=== PATIENT | male | born 1975 | race Caucasian/White ===

== ENCOUNTER 2017-12-05 11:20 | Observation (INO) | payer SELFPAY ==
[2017-12-05 12:05] LABS: #Eosinphils 0.1 thou/uL (0.0-0.7); #Lymphocytes 2.4 thou/uL (1.20-3.40); #Monocytes 0.8 thou/uL (0.11-0.59); #Neutrophils 7.5 thou/uL (1.40-6.50); %Basophils 0.4 % (0.0-1.0); %Eosinophils 0.6 % (0.0-10.0); %Lymphocytes 21.8 % (21.0-51.0); %Monocytes 7.7 % (0.0-10.0); %Neutrophils 69.4 % (42.0-75.0); Hemoglobin 17.3 g/dL (14.0-18.0); Mean Corpuscular HGB CONC 34.1 g/dL (32.0-36.0); Mean Corpuscular Volume 90.7 fl (80.0-94.0); Mean Platelet Volume 6.6 fL (7.4-10.4); Platelet Count 356 thou/uL (130-400); White Blood Cell (WBC) Count 10.8 thou/uL (4.8-10.8)
[2017-12-05 12:12] LABS: Prothrombin Time 13.5 SEC (12.0-14.7)
[2017-12-05 12:30] LABS: Bilirubin Small (Negative); Blood, Urine Negative (Negative); Clarity CLEAR (Clear); Glucose, Urine (Dipstick) Negative (Negative); Leukocyte Negative (Negative); Nitrite Negative (Negative); Protein, Urine (Dipstick) 30 mg/dL (Neg-Trace); Specific Gravity, Urine 1.036 (1.002-1.036); Urobilinogen 0.2 mg/dL (0.2-1.0); pH, Urine 5.5 (5.0-9.0)
[2017-12-05 12:30] LABS: ALT (SGPT) 45 U/L (8-55); AST (SGOT) 26 U/L (5-34); Alkaline Phosphatase 74 U/L (40-150); Anion Gap 13 mmol/L (10-20); BUN (Urea Nitrogen) 10 mg/dL (8.9-20.6); Bilirubin, Total 0.3 mg/dL (0.2-1.2); CK (CPK) 67 U/L (30-200); Calc. Creatinine Clearance 0 mL/min (70-130); Calcium 9.8 mg/dL (7.8-10.44); Carbon Dioxide 27 mmol/L (22-29); Chloride 104 mmol/L (98-107); Estimated GFR-MDRD 79; Globulin 3.5 g/dL (2.4-3.5); Glucose 111 mg/dL (70-105); Potassium 3.8 mmol/L (3.5-5.1); Protein, Total 8.5 g/dL (6.0-8.3); Sodium 140 mmol/L (136-145)
[2017-12-05 12:36] LABS: Bacteria/HPF None Seen HPF (None Seen); RBC/HPF 0-3 HPF (0-3); Squamous Epithelial 0-3 HPF (0-3)
[2017-12-05 12:42] LABS: Pathc Cast-AUWi Flag 10.17 (0-2.49)
[2017-12-05 12:43] LABS: Hyaline Casts/LPF 4-6 HYALINE CAST LPF (0-3 Hyaline); Other Casts/LPF 0-3 COARSE GRAN LPF (0-3 Hyaline); Renal Epithelial 0-3 HPF (0-3); Transitional Epithelial 0-3 HPF (0-3)
--- NOTE | 2017-12-05 13:24 | RAD ---
3 VIEWS RIGHT FOOT: Date: 12/05/17 COMPARISON: None. HISTORY: Something bit fourth toe last night with right fourth toe pain. FINDINGS: Four views of the right foot show no evidence of acute fracture or dislocation. No radiopaque foreign body is seen. Mild distal soft tissue swelling is seen. IMPRESSION: No evidence of acute osseous abnormality. POS: [facility]
[2017-12-05] MEDS ORDERED: Morphine 4 MG/ML VIAL ONE (13:49)
[2017-12-05] MEDS ORDERED: Promethazine HCl 25 MG/ML VIAL ONE (13:50)
[2017-12-05] MEDS ORDERED: diphenhydrAMINE 50 MG/ML VIAL ONE (13:50)
[2017-12-05] MEDS ORDERED: Famotidine 20 MG TAB ONE (13:50)
[2017-12-05] MEDS ORDERED: methylPREDNISolone Sod Succ/PF 125 MG/2 ML VIAL ONE (13:50)
[2017-12-05] MEDS ORDERED: Water For Inject, Bacteriostat 30 ML ONE (13:51)
--- NOTE | 2017-12-05 13:57 | PDOC.FPRHP ---
- History of Present Illness Chief Complaint: Bite History of Present Illness: 42 yo male presents for evaluation of a bite from last night. Last night around 2200 was walking around his yard in the dark last night with flip flops on and got bit by something. He thought that it was a snake, a wasp, or a spider. He initially had pain and it has progressively gotten more swollen. He states the stinging pain has been present since the event occurred. He states that he feels his lower leg and foot feel hypersensitive to touch. He has multiple other fire ant bites present on his lower extremities that are not bothering him. He has had some associated nausea, but no vomiting, diarrhea, fevers or chills. Patient states that he has no other bothersome lesions on his body. Patient otherwise states "he is in pretty good shape for 42." No other complaints today. ED Course: Diphenhydramine Famotidine Methylprednisolone Phenergan Morphine - Allergies/Adverse Reactions Allergies Allergy/AdvReac Type Severity Reaction Status Date / Time No Known Drug Allergies Allergy Verified 12/05/17 14:29 - History PMHx: Untreated Bipolar disorder PSHx: None FHx: None Social: Patient denies alcohol, drug, or tobacco use. - Review of Systems General: denies: fever/chills, weight/appetite/sleep changes Eyes: denies: eye pain ENT: denies: nasal congestion, rhinorrhea Respiratory: denies: cough, congestion Cardiovascular: reports: edema. denies: chest pain, palpitation Gastrointestinal: reports: nausea. denies: vomiting, diarrhea, constipation, abdominal pain Genitourinary: denies: incontinence, dysuria Skin: reports: lesions, itching. denies: rashes, jaundice Musculoskeletal: reports: pain (Right foot/lower leg), tenderness, swelling Neurological: denies: numbness, syncope, seizure Psychological: denies: anxiety, depression - Vital signs BP: 152/93 HR: 80 RR: 18 Tmax: 98.2 Pox: 98% on RmAir Wt: 104 kg - Physical Exam Constitutional: NAD, awake, alert and oriented HEENT: normocephalic and atraumatic, PERRLA, grossly normal vision, grossly normal hearing, normal nasal mucosa, good dention Neck: supple, trachea midline Chest: no-tender to palpation Heart: RRR, normal S1/S2, no murmurs/rubs/gallops, other (Edema present pen[facility]ent[facility] up tibia in front. Edema over entire foot with multiple suspected insect bites) Lungs: CTAB, no respiratory distress, no wheezing Abdomen: soft, non-tender, bowel sounds present, no masses/distention Musculoskeletal: normal structure, normal tone, ROM grossly normal -Musculoskeletal: Active and passive flexion do not elicit pain. No paresthesias. Warmth and edema to RLE midway up tibia. Neurological: no focal deficit, CN II-XII intact, normal sensation Skin: no rash/lesions, good turgor, capillary refill <2 seconds Heme/Lymphatic: no unusual bruising or bleeding Psychiatric: normal mood and affect, good judgment and insight, intact recent and remote memory FMR H&P: Results - Labs Result Diagrams: 12/05/17 11:50 12/05/17 11:50 Lab results: WBC 10.8 thou/uL (4.8-10.8) 12/05/17 11:50 Hgb 17.3 g/dL (14.0-18.0) 12/05/17 11:50 Hct 50.8 % (42.0-52.0) 12/05/17 11:50 MCV 90.7 fl (80.0-94.0) 12/05/17 11:50 Plt Count 356 thou/uL (130-400) 12/05/17 11:50 Neutrophils % 69.4 % (42.0-75.0) 12/05/17 11:50 Sodium 140 mmol/L (136-145) 12/05/17 11:50 Potassium 3.8 mmol/L (3.5-5.1) 12/05/17 11:50 Chloride 104 mmol/L (98-107) 12/05/17 11:50 Carbon Dioxide 27 mmol/L (22-29) 12/05/17 11:50 BUN 10 mg/dL (8.9-20.6) 12/05/17 11:50 Creatinine 1.02 mg/dL (0.6-1.3) 12/05/17 11:50 Glucose 111 mg/dL (70-105) H 12/05/17 11:50 Calcium 9.8 mg/dL (7.8-10.44) 12/05/17 11:50 Total Bilirubin 0.3 mg/dL (0.2-1.2) 12/05/17 11:50 AST 26 U/L (5-34) 12/05/17 11:50 ALT 45 U/L (8-55) 12/05/17 11:50 Alkaline Phosphatase 74 U/L (40-150) 12/05/17 11:50 Creatine Kinase 67 U/L (30-200) 12/05/17 11:50 Serum Total Protein 8.5 g/dL (6.0-8.3) H 12/05/17 11:50 Albumin 5.0 g/dL (3.5-5.0) 12/05/17 11:50 Urine Ketones Negative mg/dL (Negative) 12/05/17 12:14 Urine Blood Negative (Negative) 12/05/17 12:14 Urine Nitrite Negative (Negative) 12/05/17 12:14 Ur Leukocyte Esterase Negative (Negative) 12/05/17 12:14 Urine RBC 0-3 HPF (0-3) 12/05/17 12:14 Urine WBC 4-6 HPF (0-3) H 12/05/17 12:14 Ur Squamous Epith Cells 0-3 HPF (0-3) 12/05/17 12:14 Urine Bacteria None Seen HPF (None Seen) 12/05/17 12:14 - EKG Interpretation EK lead EKG shows normal sinus rhythm, Rate (beats per minute): 91, Interpretation: normal EKG. - Radiology Interpretation Other Status: report reviewed by me (Foot xray: No acute osseus abnormality) FMR H&P: A/P - Problem List (1) Insect bite Current Visit: Yes Status: Acute Code(s): W57.XXXA - BIT/STUNG BY NONVENOM INSECT & OTH NONVENOM ARTHROPODS, INIT (2) Elevated BP without diagnosis of hypertension Current Visit: Yes Status: Acute Code(s): R03.0 - ELEVATED BLOOD-PRESSURE READING, W/O DIAGNOSIS OF HTN - Plan 1. Insect bite - Will get doppler US to find pedal pulses - Will monitor for signs/symptoms of infection or worsening condition - Benadryl, Toradol, Pepcid, IVF - Medical Observation admission 2. Elevated BP - Will monitor vital signs - Likely secondary to pain - Will consider antihypertensive treatment as needed. CODE STATUS: FULL CODE Disposition: Stable, Will admit to Observation. FMR H&P: Upper Level - Pertinent history 42 yo M with no significant PMH presents with right lower leg swelling and pain since being bit by something outdoors last night while walking in flip flops. States he does not know what bit him, but that it stings now. Tried some tylenol at home with minimal relief. No fevers, chills, muscle aches or cramps, bleeding, headaches, dizziness. Pain mostly localized to dorsum of foot. - Pertinent findings PE: T: 98.1 P: 91 BP: 145/73 RR: 20 98% on RA Gen: [place] overweight male in NAD HEENT: PERRL, EOMI, MMM, no lymphadenopathy or thyromegaly CV: RRR no murmurs, distal pulses intact Pulm: CTAB, no wheezes or rhonchi Abd: soft, NT/ND, BS present, no masses or distention Ext: no cyanosis or edema MSK: unilateral RLE swelling, worst on dorsum of foot, no erythema, some pain with ROM, mild pallor noted, normal sensation; mild calf tenderness Neuro: CN 2-12 intact, normal sensation Psych: A&O x3, appropriate in conversation - Plan Date/Time: 12/05/17 1356 42 yo M here with leg swelling. 1) Suspected bug bite: Will observe on medical. Check doppler US to rule out DVT due to calf tenderness. Normal labs currently, but will repeat coags, CMP in AM. Low level of concern for cellulitis vs nec fasciitis at this time. Afebrile, no erythema, no pain out of proportion on exam. 2) elevated BP: Continue to monitor overnight. May have undiagnosed HTN. I, [Hemant Pederson], have evaluated this patient and agree with findings/plan as outlined by engineer intern resident. Pertinent changes/additions are listed here. Attending Addendum - Attending Addendum Date/Time: 12/05/17 [id number] I personally evaluated the patient and discussed the management with Dr. Pederson and team. I agree with and repeated the History, Examination, Assessment and Plan documented above with any addition or exceptions noted below. Very painful RLE. No fevers, chills, numbness, or tingling. No erythema or ecchymoses. Edema to mid calf. Soft compartments. Mild warmth. CR <3 s. SILT. Will admit and monitor, provide pain control, rule out DVT. CK normal. C/f large local reaction of some sort. Low suspicion for ischemia, compartment syndrome, or necrotizing fasciitis. Will check on him q2h.
[2017-12-05] MEDS ORDERED: diphenhydrAMINE 25 MG CAP PO PRN (14:24)
[2017-12-05] MEDS ORDERED: Ondansetron ODT 4 MG TAB PO PRN ×2 (15:07→15:12)
[2017-12-05] MEDS ORDERED: Ondansetron HCl/PF 4 MG/2 ML Vial IVP PRN (15:07)
[2017-12-05] MEDS ORDERED: Acetaminophen 325 MG TAB PO PRN ×2 (15:08→15:12)
[2017-12-05] MEDS ORDERED: HYDROcodone/Acetaminophen 5/325 mg Tablet PO PRN ×2 (15:08)
[2017-12-05] MEDS ORDERED: Bisacodyl 5 MG TAB PO PRN (15:12)
[2017-12-05 15:36] VITALS: BMI 31.1
--- NOTE | 2017-12-05 15:58 | ULT ---
VENOUS DOPPLER ULTRASOUND OF THE RIGHT LOWER EXTREMITY: 12/05/17 HISTORY: Right lower leg pain and edema. TECHNIQUE: Butcher scale, color flow and spectral doppler imaging of the deep venous system of the right lower extr emity was performed. FINDINGS: There is good flow, compression and augmentation noted in the right common femoral, femoral, deep fem oral, popliteal, posterior tibial and greater saphenous veins. IMPRESSION: No evidence of DVT in the right lower extremity. POS: [facility]
[2017-12-05] MEDS: Ketorolac Tromethamine 10 MG TAB PO SCH ×2 (16:24→20:58)
[2017-12-05] MEDS: Lactated Ringer's 1,000 ML IV SCH ×2 (16:25→23:55)
[2017-12-05] MEDS: Famotidine 20 MG TAB PO SCH (20:58)
[2017-12-06] MEDS: Ketorolac Tromethamine 10 MG TAB PO SCH ×3 (01:03→08:48)
--- NOTE | 2017-12-06 06:37 | PDOC.FM ---
- Subjective Subjective: Patient doing well this AM. No significant overnight events. He states his LE pain has improved and he feels much better than he did yesterday. He denies any chest pain, shortness of breath, or headaches. - Objective MAR Reviewed: Yes Vital Signs & Weight: Vital Signs (12 hours) Temp Pulse Resp BP Pulse Ox 12/06/17 04:10 97.4 F L 61 16 119/67 94 L 12/05/17 23:55 97.5 F L 61 18 117/58 L 94 L 12/05/17 20:55 97.2 F L 63 18 12/05/17 19:55 97.2 F L 63 18 141/73 H 97 Weight Weight 104.326 kg I&O: 12/04/17 12/05/17 12/06/17 06:59 06:59 06:59 Intake Total 2575 Output Total 1300 Balance 1275 Result Diagrams: 12/05/17 11:50 12/06/17 06:51 EKG Reviewed by me: No Radiology Reviewed by me: Yes Phys Exam - Physical Examination Constitutional: NAD HEENT: PERRLA, moist MMs, sclera anicteric Respiratory: clear to auscultation bilateral Cardiovascular: RRR, no significant murmur Gastrointestinal: soft, non-tender, positive bowel sounds Musculoskeletal: pulses present Neurological: non-focal, moves all 4 limbs Psychiatric: normal affect, A&O x 3 Skin: cap refill <2 seconds Deviation from normal: RLE tender to palpation from foot to level of mid calf -: 1+ pitting edema to level of mid calf; erythema improved Dx/Plan (1) Elevated BP without diagnosis of hypertension Code(s): R03.0 - ELEVATED BLOOD-PRESSURE READING, W/O DIAGNOSIS OF HTN Status : Acute (2) Insect bite Code(s): W57.XXXA - BIT/STUNG BY NONVENOM INSECT & OTH NONVENOM ARTHROPODS, INIT Status: Acute - Plan Plan: 1. Insect bite - Doppler LE negative for DVT - Condition improved this AM - D/C IV meds and fluids; switch to ibuprofen as outpatient - Medical Observation admission - Repeat CMP and coags this AM - Consider discharge home today since improvement in swelling/pain - Patient able to ambulate with minimal assistance 2. Elevated BP - Will monitor vital signs - Likely secondary to pain - Will consider antihypertensive treatment as needed - BP this AM 119/67 CODE STATUS: FULL CODE Disposition: Stable. Anticipate discharge home today if swelling/pain stable and no significant abnormalities in coag studies and CMP.
[2017-12-06 07:09] LABS: INR-International Normal Ratio 1.1; PTT 26.1 SEC (22.9-36.1); Prothrombin Time 14.2 SEC (12.0-14.7)
[2017-12-06] MEDS: Lactated Ringer's 1,000 ML IV SCH (07:12)
[2017-12-06 07:45] LABS: ALT (SGPT) 30 U/L (8-55); AST (SGOT) 17 U/L (5-34); Alkaline Phosphatase 59 U/L (40-150); Anion Gap 10 mmol/L (10-20); BUN (Urea Nitrogen) 9 mg/dL (8.9-20.6); Bilirubin, Total 0.5 mg/dL (0.2-1.2); Calc. Creatinine Clearance 174 mL/min (70-130); Calcium 9.1 mg/dL (7.8-10.44); Carbon Dioxide 27 mmol/L (22-29); Chloride 103 mmol/L (98-107); Estimated GFR-MDRD Greater than 90; Globulin 2.6 g/dL (2.4-3.5); Glucose 123 mg/dL (70-105); Potassium 4.2 mmol/L (3.5-5.1); Protein, Total 6.6 g/dL (6.0-8.3); Sodium 136 mmol/L (136-145)
[2017-12-06 08:24] VITALS: BP 122/61; TEMP 97.7
[2017-12-06] MEDS: Famotidine 20 MG TAB PO SCH (08:48)
[2017-12-06] MEDS ORDERED: Adacel (T-DAP) 0.5 ML VIAL IM ONE (11:00)
--- NOTE | 2017-12-07 15:07 | ADD-PRG ---
DATE OF SERVICE: 12/06/2017 Please see the note from Dr. Malik, for which I concur. The patient was seen, evaluated, examine d, and discussed with the residents by at bedside. Basically, right lower extremity redness and swel ling has drastically decreased. Still a lot of bruising to the dorsum of the right foot, quite a bit of tenderness and pain, but good capillary refill. Neurovascularly, seems intact. Not that erythem atous, but just a little bit around what most likely a bite or a puncture wound around the second toe on the right. Negative cords. So, basically unclear if this is some kind of venomous snake bite or potentially just an inflammatory and allergic reaction to something like a scorpion sting or wasp st ing, etc., but there is no reason to think he is having any kind of risk for compartment syndrome. T he swelling is better. We will probably send him out on p.o. antibiotics and p.o. steroids, make caprice e he takes aspirin daily, and follow up closely. Any worsening in swelling or erythema, he is to com e immediately back to the hospital. He is comfortable with this plan.
== END 2017-12-06 12:32 | disposition home or self-care (01) ==
LOC: ERS 11:20 → 2SW 14:00
PROVIDERS: ADMIT Family Medicine; ATTEND Family Medicine
DX: S90.861A Insect bite (nonvenomous), right foot, initial encounter (principal); M79.89 Other specified soft tissue disorders; F31.9 Bipolar disorder, unspecified; R03.0 Elevated blood-pressure reading, without diagnosis of hypertension; E66.3 Overweight; Z68.31 Body mass index [BMI] 31.0-31.9, adult; W57.XXXA Bitten or stung by nonvenomous insect and other nonvenomous arthropods, initial encounter
CPT/HCPCS: 36415; 80053; 81003; 81015; 82550; 85025; 85384; 85610; 85730; 86850; 86900; 86901; 90715; 93005; 96361; 96374; 96375; 96376; G0378; J1200; J2270; J2550; J2920; J2930